=== PATIENT | male | born 2000 | race Two or more races ===

== ENCOUNTER 2022-12-16 17:10 | Inpatient (IN) | payer MEDICAID, OTHER ==
[~2022-12-16] VITALS: Ht 170.2 cm; Wt 79.9 kg
[~2022-12-16 17:10] MED LIST: SERT-158 PO
[2022-12-16] MEDS ORDERED: HALOPERIDOL LACTATE 5 MG/ML VIAL IM ONE (17:30)
[2022-12-16] MEDS ORDERED: DiphenhydrAMINE HCL 50 MG/ML VIAL IM ONE (17:30)
[2022-12-16] MEDS ORDERED: LORazepam 2 MG/ML VIAL IM ONE (17:30)
[2022-12-16 18:25] LABS: BASOPHILS % (AUTO) 0.3 % (0.0-2.0); HEMOGLOBIN 14.1 g/dL (13.5-17.5); LYMPHOCYTES # (AUTO) 1.2 K/uL (1.0-4.8); LYMPHOCYTES % (AUTO) 15.2 % (22.0-44.0); MEAN CORPUSCULAR HEMOGLOBIN 30.3 pg (26.0-34.0); MEAN CORPUSCULAR HGB CONC 32.7 G/dL (31.0-37.0); MEAN CORPUSCULAR VOLUME 93 fL (80-100); MONOCYTES # (AUTO) 0.7 K/uL (0.1-1.0); MONOCYTES % (AUTO) 8.1 % (2.0-9.0); NEUTROPHILS # (AUTO) 6.1 K/uL (1.8-7.7); NEUTROPHILS % (AUTO) 75.4 % (40.0-70.0); PLATELET COUNT (AUTO) 346 K/uL (150-450); RED BLOOD CELL COUNT(AUTO) 4.64 MIL/uL (4.50-5.90); RED CELL DISTRIBUTION WIDTH 12.6 % (11.5-14.5)
[2022-12-16 18:29] LABS: COVID AG,FIA SOURCE NASOPHARYNGEAL
[2022-12-16 18:35] LABS: ANION GAP 13 mmol/L (8-16); CALCIUM, TOTAL 9.6 mg/dL (8.8-10.5); CARBON DIOXIDE 28 mmol/L (22-29); CHLORIDE 105 mmol/L (98-107); CREATININE 1.14 mg/dL (0.60-1.30); GLOMERULAR FILTR. RATE CALC > 60 mL/min (>60); GLUCOSE,RANDOM 89 mg/dL (70-110); POTASSIUM 3.6 mmol/L (3.5-5.1); SODIUM SERUM 146 mmol/L (136-145)
[2022-12-16 18:41] LABS: ALANINE AMINOTRANSFERASE 52 U/L (12-78); ALBUMIN 4.2 g/dL (3.4-5.0); ALKALINE PHOSPHATASE 87 U/L (46-116); ASPARTATE AMINOTRANSFERASE 37 U/L (15-37); BILIRUBIN,TOTAL 0.6 mg/dL (0.1-1.0); TOTAL PROTEIN, SERUM 7.9 g/dL (6.4-8.2)
[2022-12-16] MEDS ORDERED: HALOPERIDOL 5 MG TABLET PO PRN (22:30)
[2022-12-16] MEDS ORDERED: ZOLPIDEM TARTRATE 10 MG TABLET PO PRN (22:30)
[2022-12-16] MEDS ORDERED: LORazepam 1 MG TABLET PO PRN (22:30)
[2022-12-17 21:29] VITALS: BP 128/71; PULSE 82; RESP 18; TEMP 97.5; O2SAT 99
[2022-12-18] MEDS ORDERED: ALBUTEROL SULFATE HFA 90 MCG/PUFF 8 GM INHALER IH PRN (06:45)
[2022-12-18] MEDS ORDERED: ACETAMINOPHEN 325 MG TABLET PO PRN (06:45)
[2022-12-18] MEDS ORDERED: DOCUSATE SODIUM 100 MG CAPSULE PO PRN (06:45)
[2022-12-18] MEDS ORDERED: PETROLATUM,WHITE 28 GM JELLY TP PRN (06:45)
[2022-12-18] MEDS ORDERED: IBUPROFEN 600 MG TABLET PO PRN (06:45)
[2022-12-18] MEDS ORDERED: LOPERAMIDE HCL 2 MG CAPSULE PO PRN (06:45)
[2022-12-18] MEDS ORDERED: BACITRACIN 28 GM OINTMENT TP PRN (06:45)
[2022-12-18] MEDS ORDERED: CloNIDine HCL 0.1 MG TABLET PO PRN (06:45)
[2022-12-18] MEDS ORDERED: OMEPRAZOLE 20 MG CAPSULE PO PRN (06:45)
[2022-12-18] MEDS ORDERED: MAG HYDROX/AL HYDROX/SIMETH ES 30 ML SUSPENSION UDCUP PO PRN (06:45)
[2022-12-18] MEDS ORDERED: BENZOCAINE/MENTHOL LOZENGE PO PRN (06:45)
[2022-12-18] MEDS ORDERED: ONDANSETRON HCL 4 MG TABLET PO PRN (06:45)
[2022-12-18] MEDS ORDERED: MAGNESIUM HYDROXIDE SUSPENSION 30 ML UDCUP PO PRN (06:45)
[2022-12-18 09:17] VITALS: BP 115/68; PULSE 84; RESP 18; TEMP 98; O2SAT 97
[2022-12-18 20:46] VITALS: BP 118/80; PULSE 62; RESP 18; TEMP 98.1; O2SAT 96
[2022-12-19 08:42] VITALS: BP 121/74; PULSE 79; RESP 18; TEMP 98.3; O2SAT 98
[2022-12-19 20:42] VITALS: BP 126/72; PULSE 80; RESP 18; TEMP 97.4; O2SAT 97
[2022-12-20] MEDS ORDERED: SERTRALINE HCL 50 MG TABLET PO SCH (09:00)
[2022-12-20 09:03] VITALS: BP 107/62; PULSE 100; RESP 17; TEMP 98.3; O2SAT 96
[2022-12-20] MEDS ORDERED: SERT-158 PO (16:03)
== END 2022-12-20 18:00 | disposition home or self-care (01) | DRG 754 ==
LOC: EMS 17:11 → B2S 12-17 19:39
PROVIDERS: ADMIT Psychiatry & Neurology Psychiatry; ATTEND Psychiatry & Neurology Psychiatry
DX: F32.9 Major depressive disorder, single episode, unspecified (principal); E87.0 Hyperosmolality and hypernatremia; R45.851 Suicidal ideations; Z20.822 Contact with and (suspected) exposure to COVID-19; F41.9 Anxiety disorder, unspecified; G47.00 Insomnia, unspecified; K59.00 Constipation, unspecified; Z79.899 Other long term (current) drug therapy
CPT/HCPCS: 80053; 85025; 99285; G0480

== ENCOUNTER 2023-08-13 05:37 | Emergency (ER) | payer MEDICAID, OTHER ==
[~2023-08-13] VITALS: Ht 170.2 cm; Wt 86.4 kg
[2023-08-13 05:39] VITALS: BP 120/68; PULSE 102; RESP 16; TEMP 97.9
[2023-08-13] MEDS: ACETAMINOPHEN 500 MG TABLET PO ONE (06:40)
[2023-08-13] MEDS: FAMOTIDINE 20 MG TABLET PO ONE (06:40)
[2023-08-13] MEDS: MAG HYDROX/ALUMINUM HYD/SIMETH 30 ML SUSPENSION UDCUP PO ONE (06:40)
[2023-08-13] MEDS: ONDANSETRON HCL 4 MG TABLET PO ONE (06:40)
[2023-08-13 07:02] LABS: ANION GAP 6 mmol/L (8-16); BASOPHILS % (AUTO) 0.1 % (0.0-2.0); CALCIUM, TOTAL 9.4 mg/dL (8.8-10.5); CARBON DIOXIDE 32 mmol/L (22-29); CHLORIDE 102 mmol/L (98-107); CREATININE 1.25 mg/dL (0.60-1.30); EOSINOPHILS % (AUTO) 0.3 % (1.0-6.0); GLOMERULAR FILTR. RATE CALC > 60 mL/min (>60); GLUCOSE,RANDOM 114 mg/dL (70-110); HEMATOCRIT 41.7 % (41-53); LYMPHOCYTES # (AUTO) 0.4 K/uL (1.0-4.8); LYMPHOCYTES % (AUTO) 3.8 % (22.0-44.0); MEAN CORPUSCULAR HGB CONC 33.5 G/dL (31.0-37.0); MEAN CORPUSCULAR VOLUME 90 fL (80-100); MONOCYTES # (AUTO) 0.6 K/uL (0.1-1.0); MONOCYTES % (AUTO) 6.4 % (2.0-9.0); NEUTROPHILS # (AUTO) 8.5 K/uL (1.8-7.7); PLATELET COUNT (AUTO) 272 K/uL (150-450); POTASSIUM 4.3 mmol/L (3.5-5.1); RED BLOOD CELL COUNT(AUTO) 4.66 MIL/uL (4.50-5.90); RED CELL DISTRIBUTION WIDTH 12.7 % (11.5-14.5); SODIUM SERUM 140 mmol/L (136-145); UREA NITROGEN, BLOOD 13 mg/dL (7-18); WHITE BLOOD COUNT (AUTO) 9.5 K/uL (4.5-11.0)
[2023-08-13 07:05] LABS: NEUTROPHILS % (AUTO) 89.4 % (40.0-70.0)
[2023-08-13 07:08] LABS: ALANINE AMINOTRANSFERASE 36 U/L (12-78); ALKALINE PHOSPHATASE 79 U/L (46-116); ASPARTATE AMINOTRANSFERASE 28 U/L (15-37); BILIRUBIN,TOTAL 0.8 mg/dL (0.1-1.0); LIPASE 22 U/L (16-77); TOTAL PROTEIN, SERUM 7.1 g/dL (6.4-8.2)
[2023-08-13] MEDS: METOCLOPRAMIDE HCL 5 MG/ML 2 ML VIAL IVP ONE (07:36)
[2023-08-13] MEDS: SODIUM CHLORIDE 0.9% 1,000 ML IV ONE (07:37)
[2023-08-13] MEDS: DiphenhydrAMINE HCL 50 MG/ML VIAL IVP ONE (07:37)
[2023-08-13] MEDS: ONDANSETRON HCL 4 MG/2 ML VIAL IVP ONE (07:39)
[2023-08-13] MEDS ORDERED: ONDA-104 PO (08:12)
== END 2023-08-13 08:57 | disposition home or self-care (01) ==
LOC: EMS 05:37
DX: K52.9 Noninfective gastroenteritis and colitis, unspecified (principal); F41.9 Anxiety disorder, unspecified; F32.A Depression, unspecified
CPT/HCPCS: 99284; 96374; 96375; 96361; 80053; 83690; 85025; 36415; J1200; J2765; J2405; Q0162; J7030